=== PATIENT | female | born 1970 | race Caucasian/White ===

== ENCOUNTER 2020-08-13 14:02 | Outpatient (CLI) | payer OTHER, SELFPAY ==
--- NOTE | ~2020-08-13 | XR_ITS ---
EXAMINATION: XR lumbar spine 6V w bending EXAM DATE: 08/13/2020 14:43 INDICATION: No known recent injury provided at this time. Pain of the mid and low back. TECHNIQUE: Lumber spine frontal, lateral, bilateral oblique projections. Coned down frontal and lat eral L5-S1 lumbar projections for interpretation. Additional lateral flexion and lateral extension p rojections obtained. There are no prior studies for comparison. FINDINGS: There is moderate mid and lower thoracic facet arthropathy. Mild diffuse lumbar disc diseas e. The lumbar vertebral body heights are maintained. Vertebral bodies are aligned on the lateral proj ections. No spondylolysis. There is mild lumbar levoscoliosis. There are no bony erosions identified. Sacrum, sacroiliac joints, sacral arcuate lines are intact. Paraspinal soft tissue is unremarkable. IMPRESSION: 1. Moderate lumbar facet arthropathy, mild disc disease. 2. Mild levoscoliosis. Reviewed, dictated and finalized at location A.
--- NOTE | ~2020-08-13 | XR_ITS ---
EXAMINATION: XR chest 2V EXAM DATE: 08/13/2020 14:44 INDICATION: Cough. TECHNIQUE: Frontal and lateral projections of the chest obtained and reviewed. There is no prior marlene dy for comparison. FINDINGS: The lungs are clear. There are no pleural effusions. The cardiomediastinal silhouette is within normal limits. There is no pneumothorax suspected. The bones and soft tissues are unremarkab le. IMPRESSION: No acute cardiopulmonary findings. Reviewed, dictated and finalized at location A.
--- NOTE | ~2020-08-13 | XR_ITS ---
EXAMINATION: XR thoracic spine 3V EXAM DATE: 08/13/2020 14:43 INDICATION: Cough, mid back pain no injury. TECHNIQUE: Frontal and lateral projections of the thoracic spine as well as lateral swimmers projecti on of the upper thoracic spine for interpretation. There is no prior study for comparison. FINDINGS: There is mild mid and lower thoracic disc disease. No endplate erosive change. There are no acute fractures identified. The vertebral bodies are aligned in the AP dimension. Vertebral body hei ghts are maintained. Paraspinal soft tissue is unremarkable. IMPRESSION: Mild thoracic spondylosis. Reviewed, dictated and finalized at location A. IMPRESSION: Mild thoracic spondylosis.
[2020-08-13 19:42] LABS: Add Urine Microscopic? NO; Appearance Urine Clear (Clear); Bilirubin Urine Negative (Negative); Blood Urine Negative (Negative); Color Urine Straw (Yellow); Glucose Urine UA Negative (Negative); Ketones Urine Negative (Negative); Leukocyte Esterase Ur Negative LEU/UL (Negative); Nitrate Urine Negative (Negative); Protein Urine Negative (Negative); Specific Grav Ur 1.009 (1.001-1.035); Urobilinogen Urine Negative mg/dL (<2.0)
== END 2020-08-13 14:03 | disposition home or self-care (01) ==
PROVIDERS: PCP Family Medicine; Visit Provider Family Medicine
DX: M54.5 Low back pain (principal); R05 Cough; Z79.899 Other long term (current) drug therapy; M51.36 Other intervertebral disc degeneration, lumbar region; M47.894 Other spondylosis, thoracic region
CPT/HCPCS: 71046; 72072; 72114; 81003

== ENCOUNTER 2024-09-05 18:13 | Emergency (ER) | payer OTHER, SELFPAY ==
--- OUTSIDE RECORDS SUMMARY | 2024-09-05 18:15 | XMS_ITS | Clinical Summary ---
Author Organization [facility] Address [address] [place] [address] Care Team Providers Care Seed Production Field Supervisor Name Role Phone Unavailable Primary Care Provider Unavailabl e Source Comments [facility],non-owned Affiliates and Associated Physician Practices is amultiple site organization consisting of ambulatory clinics and hospital sitesin [place], [place], [place] and [place]. This disclosure is being madepursuant to the Care Everywhere program and may not contain all information available regarding this patient. Last updated 18.[facility] Allergies No known active allergies Medications * Be aware that medications may not be up to date on this document. Alwaysverify current medications with the patient. No known medications Family History Medical History Relation Name Comments CVA Father Cancer - Colon Father Hypertension Father Cancer - Other Mother cervical Relation Name Status Comments Father Mother Social History Tobacco Use Types Packs/Day Years Used Date Smoking Tobacco: Never Smokeless Tobacco: Never Comments No Sex and Gender Information Value Date Recorded Sex Assigned at Not on file Legal Sex Female 8:49 AM BEAN SORTER Gender Identity Not on file Sexual Orientation Not on file Last Filed Vital Signs Vital Sign Reading Time Taken Comments Blood Pressure 128/86 05/09/2017 9:07 AM BEAN SORTER Pulse 71 05/09/2017 9:07 AM BEAN SORTER Temperature 36.7 C (98 F) 05/09/2017 9:07 AM BEAN SORTER Respiratory Rate 16 05/09/2017 9:07 AM BEAN SORTER Oxygen Saturation 98% 05/09/2017 9:07 AM BEAN SORTER Inhaled Oxygen Concentration - - Weight 77.1 kg (170 lb) 05/09/2017 9:07 AM BEAN SORTER Height 157.5 cm (5' 2 ) 05/09/2017 9:07 AM BEAN SORTER Body Mass Index 31.09 05/09/2017 9:07 AM BEAN SORTER Plan of Treatment Health Maintenance Due Date Last Done Comments COLOGUARD (AGES 45-75) - COL ON CA SCREENING 1972 COLON MONITORING 1972 COLONOSCOPY - COLON CA SCREENING 1972 CT COLONOGRAPHY - COLON CA SCREENING 1972 Colorectal Cancer Screening 1972 FIT - COLON CA SCREENING 1972 FLEX SIG - COLON CA SCREENING 1972 LIPID TESTING 1972 MAMMOGRAM 1972 HIV SCREENING 11/03/1987 HEPATITIS C SCREENING 10/29/1990 DTAP/TDAP/TD VACCINES (1 - Tdap) 11/03/1991 HEPATITIS B VACCINE (1 of 3 - 19+ 3-dose series) 11/03/1991 SCREENING FOR DIABETES 05/09/2017 PNEUMOCOCCAL VACCINE 50+ (1 of 1 - PCV) 2022 ZOSTER VACCINE (1 of 2) 2022 COVID-19 VACCINE (1 - 2023-2 5 season) 2024 DEPRESSION SCREENING 05/15/2024 INFLUENZA VACCINE (Season Ended) 2025 HIB VACCINE Aged Out No longer eligi ble based on patient's age to complete this topic HPV VACCINE Aged Out No longer eligi ble based on patient's age to complete this topic MENINGOCOCCAL (Group B) VACC INE SHARED DECISION-MAKING Aged Out No longer eligibl e based on patient's age to complete this topic MENINGOCOCCAL GROUPS A/C/Y/W VACCINE Aged Out No longer eligible b ased on patient's age to complete this topic Insurance
--- OUTSIDE RECORDS SUMMARY | 2024-09-05 18:16 | XMS_ITS | Referral Summary ---
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 Obesity (BMI 30-39.9) 12/12/2016 Social History Tobacco Use Types Packs/Day Years Used Date Smoking Tobacco: Never Smokeless Tobacco: Never Tobacco Cessation:Counseling Given: Yes Alcohol Use Standard Drinks/Week Comments Yes 0 (1 standard drink = 0.6 oz pur e alcohol) occ Personal Safety Answer Date Recorded Getting School Help Needed Not on file 07/28 Comments No Sex and Gender Information Value Date Recorded Sex Assigned at Not on file Legal Sex Female 3:28 PM JAVA J2EE LEAD Gender Identity Not on file Sexual Orientation Not on file 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 Not on file Not on file Last Filed Vital Signs Vital Sign Reading Time Taken Comments Blood Pressure 116/76 11/28/2018 3:19 PM CDT Pulse 78 02/15/2018 3:17 PM CDT Temperature 37 C (98.6 F) 02/15/2018 3:17 PM CDT Respiratory Rate - - Oxygen Saturation - - Inhaled Oxygen Concentration - - Weight 98 kg (216 lb) 11/28/2018 3:19 PM CDT Height 156.2 cm (5' 1.5 ) 02/15/2018 3:17 PM CDT Body Mass Index 40.15 02/15/2018 3:17 PM CDT Plan of Treatment Not on file Insurance [employer] CHOICE PLUS [place] [id number] Care Teams Nuclear Radiation Engineer Relationship Specialty Start Date End Date Aston Islas DO PCP - General Family Medicine 02/21/18 Lj Barrera MD Medical Oncologist/Sewer Line Repairer Hematology and Oncology 02/13/18
--- OUTSIDE RECORDS SUMMARY | 2024-09-05 18:16 | XMS_ITS | Clinical Summary ---
Author Organization [facility] Address [address] [place] [address] Phone Care Team Providers Care Consulting Marine Engineer Name Role Phone Provider, None Primary Care Provider Unavailabl e Allergies No known active allergies Medications Phentermine HCl 37.5 MG Capsule Take 37.5 mg by mouth daily. 10/04/2016 Active Meloxicam 15 MG TabletIndicatio ns:Pain of left hip joint Take 1 Tab by mouth daily. Take with food. Do not take on an empty stomach 30 Tab 3 11/10/2016 Active Family History Medical History Relation Name Comments Colon Cancer Father Heart Attack Father Hypertension Father Stroke Father Cervical Cancer Mother Hypertension Sister Stroke Sister Relation Name Status Comments Father Mother Sister Social History Tobacco Use Types Packs/Day Years Used Date Smoking Tobacco: Never Alcohol Use Standard Drinks/Week Comments Yes 1 (1 standard drink = 0.6 oz pur e alcohol) Sexually Active Control Partners Comments Yes Male Comments Unknown Sex and Gender Information Value Date Recorded Sex Assigned at Not on file Legal Sex Female 12:16 PM CDT Gender Identity Not on file Sexual Orientation Not on file Last Filed Vital Signs Vital Sign Reading Time Taken Comments Blood Pressure 136/86 11/10/2016 3:13 PM CDT Pulse 77 11/10/2016 3:13 PM CDT Temperature 36.3 C (97.4 F) 11/10/2016 3:13 PM CDT Respiratory Rate 18 11/10/2016 3:13 PM CDT Oxygen Saturation 100% 11/10/2016 3:13 PM CDT Inhaled Oxygen Concentration - - Weight 80.3 kg (177 lb) 11/10/2016 3:13 PM CDT Height 157.5 cm (5' 2 ) 11/10/2016 3:13 PM CDT Body Mass Index 32.37 11/10/2016 3:13 PM CDT Plan of Treatment Health Maintenance Due Date Last Done Comments Hepatitis C Virus (HCV) Screening 1972 TdaP Immunization 1972 Hepatitis B Immunization (1 of 3 - 19+ 3-dose series) 11/03/1991 Colonoscopy 2017 Colorectal Cancer Screening 2017 Cologuard 2022 Immunochemical Fecal Occult Blood 2022 Pneumococcal Immunization (5 0+ years) (1 of 1 - PCV) 2022 Zoster Immunization (1 of 2) 2022 Influenza Immunization (#1) 2024 SARS-COV-2 Immunization (3 - 2023- season) 2024 12/30/2020, 12/09/2020 Respiratory Syncytial Virus (RSV) Immunization (Adult) (1 - 1-dose 75+ series) 11/03/2047 Meningococcal Immunization (ACWY) Aged Out No longer eligible b ased on patient's age to complete this topic Rotavirus Immunization Aged Out No lo nger eligible based on patient's age to complete this topic Care Teams Consulting Marine Engineer Relationship Specialty Start Date End Date Provider, None [place] PCP - General 10/29/20
--- OUTSIDE RECORDS SUMMARY | 2024-09-05 18:16 | XMS_ITS | Clinical Summary ---
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 Obesity (BMI 30-39.9) 12/12/2016 Family History Medical History Relation Name Comments Colon cancer Father Onset late 50s Hypertension Father Stroke Father Cervical cancer Mother Hypertension Sister Stroke Sister Relation Name Status Comments Father Mother (Age 35) Sister Social History Tobacco Use Types Packs/Day [...] on file Legal Sex Female 3:28 PM GOLD BEATER Gender Identity Not on file Sexual Orientation Not on file 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 Not on file Not on file Obstetrics History Para Term AB IAB SAB Ectopic Multiple Livin g Live Births 2 2 2 0 0 2 Date Outcome GA Total Labor Labor/2nd/3rd Weight Sex Type Anes PTL Cleopatra A1 A5 Name Clin Term Term Last Filed Vital Signs Vital Sign Reading [...] Plan of Treatment Not on file Insurance CHOICE PLUS [facility]/PPO Address: [place] [address] CHOICE PLUS [facility]/PPO Address: [place] [address] [facility] CHOICE PLUS [facility]/PP[facility] Address: [place] [address] Care Teams Financial Manager Relationship Specialty Start Date End Date Aston Islas DO PCP - General Family Medicine 02/21/18 Lj Barrera MD Medical Oncologist/Hotel Director Hematology and Oncology 02/13/18
[2024-09-05 18:22] VITALS: BP 184/76; PULSE 92; RESP 20; TEMP 36.8; O2SAT 100
--- NOTE | 2024-09-05 18:48 | ED_ITS ---
HPI - Ear Problem General Chief complaint: Ear Stated complaint: right ear and neck pain Time Seen by Provider: 09/05/24 18:40 Source: patient, RN notes reviewed and old records reviewed Mode of arrival: ambulatory Limitations: no limitations History of Present Illness HPI Narrative: 53 year old female who presents to [facility] care with complaints of right ear discomfort and pain to the neck below ear, headache for past 2 days and sinus congestion and drainage for 2 weeks. Patient reports no known fevers, chills or sweats or any body aches, reports headache has been for the past 2 days. She states that she has been taking Ibuprofen and sinus medication. Patient reports history of hypertension and blood pressure is elevated states has not taken her medication for 2 years does not have doctor. MD Complaint: ear pain and other (sinus congestion and drainage , headache and nausea) Location: right ear Duration: constant Severity: moderate Discharge from ear: Reports no Treatment prior to arrival: other (Ibuprofen and sinus medication) Related Data Allergies Allergy/AdvReac Type Severity Reaction Status Date / Time No Known Allergies Allergy Unknown Verified 09/05/24 18:46 Review of Systems Review of Systems: CONSTITUTIONAL: Denies malaise, chills, sweats, or fever. EYES: Denies visual changes, redness, or discharge. ENT: Reports rhinorrhea, congestion, sinus pain, right otalgia and no sore throat. CARDIOVASCULAR: Denies chest pain, palpitations, or edema. RESPIRATORY: Reports no acute cough.? Denies dyspnea. GASTROINTESTINAL: Denies abdominal pain, nausea, vomiting, diarrhea SKIN: Denies rash or itching. MUSCULOSKELETAL: Denies myalgia. NEUROLOGIC: Reports headache. All systems reviewed & are unremarkable except as noted in HPI and below PMFSH Past Medical History Medical History HTN (hypertension) Family History Family History Father Hypertension Cerebrovascular accident Carcinoma of colon Mother Family history of malignant neoplasm of cervix Social History Social History Smoking status: Never smoker Second hand tobacco smoke exposure: No Alcohol intake: current Substance use type: does not use Living arrangements: with family Gender identity (if verbalized by the patient): Female Comments At time of signature, agree with nursing past medical, surgical, social and family history. There is no relevant family history pertinent to the presenting complaint Exam Narrative: GENERAL: Well-appearing, well-nourished, and in no acute distress. HEAD: Normocephalic EYES: PERRLA, conjunctivae clear ENT: Nares clear, turbinates edematous and erythematous, clear discharge, sinus pressure and headache. Mucous membranes moist. TM pearly gunter with dull light reflex bilaterally; no tragal tenderness. Oropharynx erythematous without lesions. Tonsils not enlarged and without exudate, no drooling, no hoarseness, no trismus, uvula midline.post nasal drainage noted NECK: Supple. No lymphadenopathy CHEST: Clear to auscultation, breath sounds equal. No wheezing, rhonchi, rales, or stridor. No respiratory distress, speaks in full sentences.SAO2 100% on room air HEART: Regular rate and rhythm. No murmur heard. SKIN: Warm, dry, no rash. NEURO: Alert and oriented x3. PSYCH: Normal mood and affect Course Course Emergency Course: Patient is aware of diagnosis, understands and agrees to treatment plan.? Anticipatory guidance given.? Patient agrees to follow-up as directed and is aware of reasons to seek care at the emergency department. Portions of this record may have been created with voice recognition software Level of Care: Express Care Visit Vital Signs Vital signs: Vital Signs Temperature 36.8 C 09/05/24 18:22 Pulse Rate 92 09/05/24 18:22 Respiratory Rate 20 09/05/24 18:22 Blood Pressure 184/76 H 09/05/24 18:22 Pulse Oximetry 100 09/05/24 18:22 Oxygen Delivery Room Air 09/05/24 18:22 Temperature 36.8 C 09/05/24 18:22 Pulse Rate 92 09/05/24 18:22 Respiratory Rate 20 09/05/24 18:22 Blood Pressure 184/76 H 09/05/24 18:22 Pulse Oximetry 100 09/05/24 18:22 Oxygen Delivery Room Air 09/05/24 18:22 Reviewed Medical Decision Making Differential Diagnosis Differential Diagnosis: URI, otalgia, otitis media, sinusitis, viral infection, headache, elevated blood pressure Medical Records Medical records reviewed: Yes I reviewed the external patient's medical records. Vital Signs Vital Signs: Vital Signs Temperature 36.8 C 09/05/24 18:22 Pulse Rate 92 09/05/24 18:22 Respiratory Rate 20 09/05/24 18:22 Blood Pressure 184/76 H 09/05/24 18:22 Pulse Oximetry 100 09/05/24 18:22 Oxygen Delivery Room Air 09/05/24 18:22 Temperature 36.8 C 09/05/24 18:22 Pulse Rate 92 09/05/24 18:22 Respiratory Rate 20 09/05/24 18:22 Blood Pressure 184/76 H 09/05/24 18:22 Pulse Oximetry 100 09/05/24 18:22 Oxygen Delivery Room Air 09/05/24 18:22 reviewed Critical Care Time Critical Care Time Critical Care Time: No Discharge Plan Discharge Clinical Impression: Ear pain, right, Hypertension, uncontrolled Sinusitis Qualifiers: Sinusitis location: pansinusitis Chronicity: acute Recurrence: not specified as recurrent Qualified Code(s): J01.40 - Acute pansinusitis, unspecified Patient Disposition: Home Condition: Stable Instructions: Antibiotic Form, Sinusitis (ED) Additional Instructions: Increase fluids especially juices and water [id number] cough and cold medicine of your choice for your symptoms Zyrtec Claritin or Katharine daily Tylenol or ibuprofen for any fever pain Antibiotic as prescribed take all doses Medrol Dosepak take as prescribed start tomorrow heat to the face 20-30 minutes 4-6 times a day for pain Salt water gargles, throat lozenges or throat sprays as desired Antibiotic as directed--finished the medication If your symptoms persist, change or worsen significantly before you can contact your personal physician then please, without delay, go to the emergency department for further evaluation. Follow-up with PCP in 7-10 days or sooner if needed Follow up with PCP soon in regards to your blood pressure which is elevated above threshold for referral. Blood pressure above 120/80 may indicate pre- hypertension. Renewed prescription for blood pressure medicine and list of physicians given to patient Patient Language: Moroccan Prescriptions: New lisinopril-hydrochlorothiazide 20-12.5 mg tablet 1 tablet PO DAILY Qty: 60 0RF methylprednisolone [Medrol (Mendez)] 4 mg tablets,dose pack See Rx Instructions .ROUTE .COMPLEX Qty: 21 0RF Rx Instructions: orally per package directions amoxicillin-pot clavulanate 875-125 mg tablet 1 tablet PO Q12H Qty: 20 0RF Rx Instructions: prescription already called No Action lisinopril-hydrochlorothiazide 20-12.5 mg tablet 1 tablet PO DAILY Qty: 90 1RF Follow-up/Referrals: PHYSICIAN,FINANCIAL SERVICES ASSOCIATE [Primary Care Provider] - Time of Disposition: 19:05 Quality Glenny Coma Scale Eyes: Open Verbal: Oriented and Alert Motor: Follows Commands Lisman Coma Total Score: 15
== END 2024-09-05 19:24 | disposition home or self-care (01) ==
PROVIDERS: Emergency Provider Registered Nurse
DX: J01.40 Acute pansinusitis, unspecified (principal); I10 Essential (primary) hypertension; H92.01 Otalgia, right ear; Z79.1 Long term (current) use of non-steroidal anti-inflammatories (NSAID)
CPT/HCPCS: 99213; G0463